=== PATIENT | female | born 1965 | race Caucasian/White ===

== ENCOUNTER 2021-05-30 10:45 | Outpatient (CLI) | payer OTHER, SELFPAY ==
[2021-05-30 11:47] LABS: SARS-CoV-2 RNA PCR Negative (Negative)
== END 2021-05-30 10:46 | disposition home or self-care (01) ==
LOC: CHSLAB 10:48
PROVIDERS: PCP Internal Medicine; Visit Provider Internal Medicine
DX: Z20.822 Contact with and (suspected) exposure to COVID-19 (principal)
CPT/HCPCS: C9803; U0003; U0005

== ENCOUNTER 2021-05-31 11:48 | Outpatient (CLI) | payer OTHER, SELFPAY ==
--- NOTE | ~2021-05-31 | XR_ITS ---
EXAMINATION: XR chest 2V 05/31/2021 12:26 INDICATION: Fever and cough. Covid. PROCEDURE: 2 view chest COMPARISON: No prior studies for comparison. FINDINGS: The lungs are clear. The cardiomediastinal silhouette is within normal limits. There are no pleural effusions. There is no pneumothorax suspected. There are cholecystectomy clips. IMPRESSION: 1: NO ACUTE CARDIOPULMONARY DISEASE. Reviewed, dictated and finalized at location A.
[2021-05-31 12:37] LABS: Basophils Absolute Auto 0.09 K/mm3 (0.00-0.10); Basophils Percent Auto 1.1 % (0.0-1.0); Eosinophils Absolute Auto 0.33 K/mm3 (0.02-0.50); Hematocrit 47.1 % (35.0-49.0); Immature Granulocyte Absolute 0.03 K/mm3 (0.00-0.00); Immature Granulocyte Percent A 0.4 % (0.0-0.0); Lymphocytes Absolute Auto 3.23 K/mm3 (1.10-4.50); Lymphocytes Percent Auto 39.2 % (18.0-42.0); Mean Corpuscular Hemoglobin 29.9 pg (27.0-31.0); Monocytes Absolute Auto 0.56 K/mm3 (0.10-0.90); Monocytes Percent Auto 6.8 % (2.0-11.0); Neutrophils Percent Auto 48.5 % (50.0-70.0); Platelet Count Result 250 K/mm3 (150-420); Red Blood Count 5.35 M/mm3 (4.20-5.40); Red Cell Distribution Width 13.5 % (11.6-14.4); White Blood Count 8.2 K/mm3 (4.8-10.8)
[2021-05-31 12:55] LABS: Alanine Aminotransferase 25 U/L (14-59); Albumin Level 3.4 g/dL (3.4-5.0); Alkaline Phosphatase 167 U/L (46-116); Anion Gap 10 mmol/L (8-16); Aspartate Amino Transferase 21 U/L (15-37); Bilirubin,Total 0.3 mg/dL (0.00-1.00); Blood Urea Nitrogen 8 mg/dL (7-18); CRP 0.5 mg/dL (0.0-0.9); Calcium 8.7 mg/dL (8.5-10.1); Carbon Dioxide 27 mmol/L (21-32); Chloride 103 mmol/L (98-108); Estimated Glomerular Filt Rate > 60; Glucose 124 mg/dL (70-99); Osmolality Calculated 289 mOsm/kg (285-295); Potassium 4.1 mmol/L (3.5-5.1); Sodium 140 mmol/L (136-145); Total Protein 7.2 g/dL (6.4-8.2)
[2021-05-31 13:25] LABS: SARS-CoV-2 RNA PCR Negative (Negative)
== END 2021-05-31 11:49 | disposition home or self-care (01) ==
PROVIDERS: PCP Internal Medicine; Visit Provider Internal Medicine
DX: R50.9 Fever, unspecified (principal); R05 Cough; R19.7 Diarrhea, unspecified; Z20.822 Contact with and (suspected) exposure to COVID-19
CPT/HCPCS: 36415; 71046; 80053; 85025; 86140; C9803; U0003; U0005

== ENCOUNTER 2022-02-13 13:07 | Outpatient (RCR) | payer OTHER, SELFPAY ==
--- NOTE | 2022-02-13 14:02 | PTOPEVAL ---
Thank you for referring Blanca Grijalva to [facility].? The patient is scheduled to be seen for therapy? ____x/week for ___ weeks. Please review, sign, date and return this plan of care ZARA. I agree with and certify that the following plan of care is medically necessary. Referring Physician Date Admitting Provider: Attending Provider: Carter Wolf MD Referring Provider: *PT Outpatient Evaluation Start: 02/13/22 13:15 Freq: Status: Active Protocol: Document 02/13/22 13:15 Summer (Rec: 02/13/22 14:02 KISHA [email or web address]) Therapy Assessment Status Assessment Status Assessment Status Evaluation Evaluation Information Problem Diagnosis lower back pain Onset 02/05/22 Additional Evaluation Detail oswestry = 60% functional deficits Subjective Information patient reports she has had Query Text:As Reported By Patient/ increased back pain for about Family 1 month. she reports she had a fusion of lower lumbar levels of the spine back in 1983. she reports she now is having trouble walking, sleeping, standing. she reports sitting is tolerable, but she does have to get up and move from time to time. she reports she has no NTB down the legs. Prior Level of Function Comments Additional Prior Level of Function patient has been getting Comments progressively worse for about 1 month. she reports no recent change in activities. she reports she would like to get back to walk around the block at home, cleaning house, and other chores without pain. Pain Assessment Timing of Pain Assessment Timing of Pain Assessment Assessment Pain Scale Pain Scale Used Numeric (1 - 10) Self Report Pain Assessment Lower Back Reported Pain Level 9 Pain Description Aching,Heavy,Sharp,Stabbing Pain Frequency Acute,Chronic Greatest Pain Intensity 10 Pain Score Pain Score 9: Self Report Interventions Used Interventions Used By Clinicians Medication,Rest Other Alleviating Interventions tramadol, cyclobenzepram Cervical and Lumbar ROM Lumbar ROM Lumbar Flexion Active Ankle Query Text:Hands to: Lumbar Extension (0-40) 0 Query Text:Active in Degrees Lumbar Lateral Flexion Right (0-40) 15 Query Text:Active in Degrees
--- NOTE | 2022-06-18 07:31 | PCPTNOTE ---
mrs. borges has not been to therapy since back in February. as of this date, she will be dc'd from skilled PT services due to lack of return to complete POC. KISHA
== END 2022-02-27 23:59 | disposition home or self-care (01) ==
LOC: CHSPT 13:07
PROVIDERS: PCP Internal Medicine; Visit Provider Internal Medicine
DX: M54.50 Low back pain, unspecified (principal)
CPT/HCPCS: 97014; 97110; 97161; G0283

== ENCOUNTER 2022-03-07 11:29 | Outpatient (CLI) | payer OTHER, SELFPAY ==
--- NOTE | 2022-03-07 11:45 | ECG_ITS ---
Measurements Intervals [place] Rate: 88 P: 75 VT: 161 QRS: 74 QRSD: 77 T: 27 QT: 350 QTc: 425 Interpretive Statements SINUS RHYTHM NONSPECIFIC T-WAVE ABNORMALITY NO PREVIOUS ECG AVAILABLE FOR COMPARISON Electronically Signed On 03-08-2022 15:52:11 CDT by Acosta Mobley M.D.
[2022-03-07 11:48] LABS: Basophils Absolute Auto 0.09 K/mm3 (0.00-0.10); Basophils Percent Auto 1.3 % (0.0-1.0); Eosinophils Absolute Auto 0.33 K/mm3 (0.02-0.50); Eosinophils Percent Auto 4.6 % (1.0-6.0); Hematocrit 45.7 % (35.0-49.0); Immature Granulocyte Absolute 0.04 K/mm3 (0.00-0.00); Immature Granulocyte Percent A 0.6 % (0.0-0.0); Lymphocytes Absolute Auto 2.73 K/mm3 (1.10-4.50); Lymphocytes Percent Auto 38.1 % (18.0-42.0); Mean Corpuscular HGB Conc 32.8 g/dL (32.0-36.0); Mean Corpuscular Hemoglobin 29.5 pg (27.0-31.0); Mean Platelet Volume 9.1 fl (9.2-11.8); Monocytes Percent Auto 8.4 % (2.0-11.0); Neutrophils Absolute Auto 3.4 K/mm3 (1.7-7.2); Platelet Count Result 239 K/mm3 (150-420); Red Blood Count 5.08 M/mm3 (4.20-5.40); Red Cell Distribution Width 13.6 % (11.6-14.4); White Blood Count 7.2 K/mm3 (4.8-10.8)
[2022-03-07 12:05] LABS: Alanine Aminotransferase 26 U/L (14-59); Albumin Level 3.4 g/dL (3.4-5.0); Alkaline Phosphatase 179 U/L (46-116); Anion Gap 5 mmol/L (8-16); Aspartate Amino Transferase 18 U/L (15-37); Bilirubin,Total 0.2 mg/dL (0.00-1.00); Blood Urea Nitrogen 17 mg/dL (7-18); Calcium 8.6 mg/dL (8.5-10.1); Carbon Dioxide 27 mmol/L (21-32); Chloride 105 mmol/L (98-108); Estimated Glomerular Filt Rate > 60; Glucose 121 mg/dL (70-99); Osmolality Calculated 286 mOsm/kg (285-295); Potassium 4.5 mmol/L (3.5-5.1); Sodium 137 mmol/L (136-145); Total Protein 7.5 g/dL (6.4-8.2)
== END 2022-03-07 11:30 | disposition home or self-care (01) ==
LOC: CHSCARD 11:33
PROVIDERS: PCP Internal Medicine; Visit Provider Internal Medicine
DX: Z01.818 Encounter for other preprocedural examination (principal)
CPT/HCPCS: 36415; 80053; 85025; 93005

== ENCOUNTER 2022-04-24 12:39 | Outpatient (CLI) | payer OTHER, SELFPAY ==
[2022-04-24 14:12] LABS: SARS-CoV-2 Ag Negative (Negative)
[2022-04-24 14:50] LABS: SARS-CoV-2 RNA PCR Negative (Negative)
== END 2022-04-24 12:40 | disposition home or self-care (01) ==
LOC: CHSLAB 12:43
PROVIDERS: PCP Internal Medicine; Visit Provider Internal Medicine
DX: Z20.822 Contact with and (suspected) exposure to COVID-19 (principal)
CPT/HCPCS: 87426; C9803; U0003; U0005

== ENCOUNTER 2022-04-29 10:56 | Outpatient (CLI) | payer OTHER, SELFPAY ==
[2022-04-29 11:45] LABS: SARS-CoV-2 Ag Negative (Negative)
[2022-04-29 12:29] LABS: SARS-CoV-2 RNA PCR Negative (Negative)
== END 2022-04-29 10:57 | disposition home or self-care (01) ==
LOC: CHSLAB 10:58
PROVIDERS: PCP Internal Medicine; Visit Provider Internal Medicine
DX: Z20.822 Contact with and (suspected) exposure to COVID-19 (principal)
CPT/HCPCS: 87426; C9803; U0003; U0005

== ENCOUNTER 2022-10-03 09:42 | Outpatient (CLI) | payer OTHER, SELFPAY ==
--- NOTE | ~2022-10-03 | CT_ITS ---
EXAMINATION:CT lung screening DATE: 10/03/2022 10:54 INDICATION: Persistent history of nicotine dependence. Current smoker with 30 pack year history. TECHNIQUE: Computed tomography (CT) of the chest was performed without intravenous contrast. Automate d exposure control and iterative reconstruction technique were employed. The dose-length product (DLP ) was 413.55 mGy-cm. COMPARISON: None. FINDINGS: There is mild emphysema. There is mild atelectasis bilaterally. No pleural effusion. The he art size is normal. There are coronary artery calcifications. No pericardial effusion. There is diffu se hepatic steatosis. There are changes of cholecystectomy. There is severe thoracic spondylosis. IMPRESSION: 1. Lung-RADS category 1: Negative. Continue annual screening with noncontrast low-dose chest CT in 12 months. Reviewed, dictated and finalized at location A. VISION ANNOUNCER IMPRESSION: 1. Lung-RADS category 1: Negative. Continue annual screening with noncontrast l ow-dose chest CT in 12 months.
--- NOTE | ~2022-10-03 | MR_ITS ---
MRI of the lumbar spine Clinical History: Back pain Technique: Axial T2-weighted images, and sagittal T1-weighted, T2-weighted, and STIR images were acqu ired. Following intravenous administration of 10 cc MultiHance gadolinium, T1-weighted fat-sat imagin g was performed in the axial and sagittal planes. Findings: Posterior orthopedic hardware with susceptibility artifact is again present at the L4-L5 an d L5-S1 levels. Osseous alignment is stable from prior exam. No fracture or subluxation. No suspiciou s bone marrow signal abnormality evident. At L1-L2, there is mild disc bulge, especially at the left side, with minimal facet arthropathy. No f rank spinal canal stenosis. Probable minimal right neural foraminal narrowing. Left neural foramen pr eserved. At L2-L3, there is disc bulge and facet arthropathy, which contribute to severe spinal canal stenosis /thecal sac compression. There is moderate bilateral neural foraminal narrowing. At L3-L4, there is minimal disc bulge with facet arthropathy. Susceptibility artifact limits evaluati on the spinal canal. Probable minimal bilateral neural foraminal narrowing. At L4-L5, there is no definite disc bulge or herniation. Susceptibility artifact limits evaluation sp inal canal, but no definite canal stenosis is evident. Probable mild right neural foraminal narrowing . At L5-S1, no definite disc bulge or herniation seen. Susceptibility artifact limits evaluation of the spinal canal. Bilateral neural foramina are preserved. No abnormal postcontrast enhancement identified. Paravertebral soft tissues are unremarkable. Impression: Posterior hardware from L4 through S1, with associated susceptibility artifact. Multifactorial severe central canal stenosis/thecal sac compression at L2-L3 with moderate bilateral neural foraminal narrowing. Limited evaluation of spinal canal at the operative levels due to susceptibility artifact. Reviewed, dictated and finalized at [facility]. NS CUTTER Impression: Posterior hardware from L4 through S1, with associated susceptibility artifact. Multifactorial severe central canal stenosis/thecal sac compression at L2-L3 wi th moderate bilateral neural foraminal narrowing. Limited evaluation of spinal canal at the operative levels due to susceptibilit y artifact.
== END 2022-10-03 09:43 | disposition home or self-care (01) ==
LOC: CHSIMG 09:43
PROVIDERS: PCP Internal Medicine; Visit Provider Internal Medicine
DX: M54.50 Low back pain, unspecified (principal); Z12.2 Encounter for screening for malignant neoplasm of respiratory organs; Z87.891 Personal history of nicotine dependence; M48.061 Spinal stenosis, lumbar region without neurogenic claudication; G95.29 Other cord compression
CPT/HCPCS: 71271; 72158; A9577

== ENCOUNTER 2023-02-06 13:12 | Outpatient (CLI) | payer OTHER, SELFPAY ==
--- NOTE | ~2023-02-06 | CT_ITS ---
EXAMINATION: CT pelvis wo con DATE: 02/06/2023 13:46 INDICATION: Sacrococcygeal disorder. Back pain. TECHNIQUE: Computed tomography (CT) of the pelvis was performed without intravenous contrast. Automat ed exposure control and iterative reconstruction technique were employed. The dose-length product was 830.66 mGy-cm. COMPARISON: None FINDINGS: There are no dilated loops of bowel. There are no pathologically enlarged lymph nodes. Ther e is no free intraperitoneal fluid. Bone alignment is normal. No fracture. There are changes of poste rior fusion procedure at L4-L5. There is severe lumbar spondylosis. There is severe osteoarthritis of the hips. Osteitis pubis is noted. There is severe osteoarthritis of the sacroiliac joints. IMPRESSION: 1. Polyarticular osteoarthritis. Reviewed, dictated and finalized at location E.
--- NOTE | ~2023-02-06 | CT_ITS ---
EXAMINATION: CT lumbar spine wo con DATE: 02/06/2023 13:46 INDICATION: Lumbar spinal stenosis. Back pain. TECHNIQUE: Computed tomography (CT) of the lumbar spine was performed without intravenous contrast. A utomated exposure control and iterative reconstruction technique were employed. The dose-length produ ct was 1213.50 mGy-cm. COMPARISON: Lumbar spine MRI 10/03/2022 FINDINGS: There is severe atrophy of right kidney. Calcifications in right kidney are likely parenchy mal. There is 7 degrees levocurvature of thoracolumbar spine. There is mild chronic anterior wedging of T11 and T12 vertebral bodies. There is moderately decreased disc height at T11-T12, T12-L1, and L1 -L2, severely decreased disc height at L2-L3, mildly decreased disc height at L3-L4, severely decreas ed disc height at L4-L5, mildly decreased disc height at L5-S1. There may be nonbridging interbody aris ne graft at L4-L5. There is fixation of the posterior elements at L4-L5. There is osseous central can al stenosis in lumbar spine. The following disc levels are specifically discussed: T11-T12: The disc is bulging. There is mild bilateral facet joint osteoarthritis. There is no neural foraminal stenosis. There is mild central canal stenosis. T12-L1: The disc is bulging. There is moderate bilateral facet joint osteoarthritis. There is mild ri ght neural foraminal stenosis. There is mild central canal stenosis. L1-L2: The disc is bulging. There is moderate right and mild left facet joint osteoarthritis. There i s mild bilateral neural foraminal stenosis. There is mild central canal stenosis. L2-L3: The disc is bulging. There is moderate bilateral facet joint osteoarthritis. There is moderate bilateral neural foraminal stenosis. There is moderate central canal stenosis. L3-L4: The disc is bulging. There is severe right and moderate left facet joint osteoarthritis. There is mild bilateral neural foraminal stenosis. There is moderate central canal stenosis. L4-L5: The disc is bulging. There is severe bilateral facet joint osteoarthritis. There is mild right and moderate left neural foraminal stenosis. There is mild central canal stenosis with posterior dec ompression. L5-S1: The disc is bulging. There is severe bilateral facet joint osteoarthritis. There is mild bilat eral neural foraminal stenosis. There is mild central canal stenosis. IMPRESSION: 1. Severe lumbar spondylosis. 2. Posterior fusion procedure at L4-L5. Reviewed, dictated and finalized at location E.
== END 2023-02-06 13:13 | disposition home or self-care (01) ==
LOC: CHSIMG 13:13
PROVIDERS: PCP Internal Medicine; Visit Provider Neurological Surgery
DX: M53.3 Sacrococcygeal disorders, not elsewhere classified (principal); M48.00 Spinal stenosis, site unspecified; M85.88 Other specified disorders of bone density and structure, other site; M43.06 Spondylolysis, lumbar region; Z98.1 Arthrodesis status
CPT/HCPCS: 72131; 72192

== ENCOUNTER 2024-02-20 13:04 | Outpatient (CLI) | payer OTHER, SELFPAY ==
--- NOTE | ~2024-02-20 | MR_ITS ---
MRI of the lumbar spine Clinical History: Spinal stenosis Technique: Axial T2-weighted images, and sagittal T1-weighted, T2-weighted, and T2 fat-sat images wer e acquired. COMPARISON: 10/03/2022 Findings: There is no fracture or subluxation of the lumbar spine. There is posterior fusion hardware extending from L4 through S1, with associated susceptibility artifact posteriorly. No suspicious bon e marrow signal abnormality evident. At L1-L2, there is moderate to advanced degenerative distended. There is mild diffuse disc bulge with probable superimposed small central disc protrusion. There is moderate facet arthropathy. There is m inimal central canal stenosis. There is mild bilateral neural foraminal narrowing. At L2-L3, there is moderate to advanced degenerative disc narrowing. There is diffuse disc bulge with superimposed small left paracentral to left foraminal disc protrusion. Advanced facet arthropathy al so contributes to severe spinal canal stenosis/thecal sac compression at this level. There is severe bilateral neural foraminal narrowing. At L3-L4, there is mild disc bulge with severe facet arthropathy, and suspected severe spinal canal s tenosis/thecal sac compression. There is moderate bilateral neural foraminal narrowing, left worse th an right. At L4-L5, there is moderate degenerative disc narrowing with posterior decompression. No definite spi nal canal stenosis. Neural foramina are probably preserved. At L5-S1, there is minimal disc bulge with advanced facet arthropathy. No definite canal stenosis. Pr obable mild to moderate left neural foraminal narrowing. No definite right neural foraminal narrowing . Paravertebral soft tissues are otherwise unremarkable. Impression: Probable advanced degenerative spondylosis at L2-L3 and L3-L4, as detailed above. Probable moderate degenerative spondylosis at L1-L2, as detailed above. Postoperative change, as above. Reviewed, dictated and finalized at location M. Impression: Probable advanced degenerative spondylosis at L2-L3 and L3-L4, as detailed abov e. Probable moderate degenerative spondylosis at L1-L2, as detailed above. Postoperative change, as above.
== END 2024-02-20 13:05 ==
LOC: MICIMG 13:05
PROVIDERS: PCP Neurological Surgery; Visit Provider Neurological Surgery
DX: M48.062 Spinal stenosis, lumbar region with neurogenic claudication (principal); Z98.1 Arthrodesis status
CPT/HCPCS: 72148

== ENCOUNTER 2024-04-09 07:34 | Outpatient (CLI) | payer OTHER, SELFPAY ==
--- NOTE | ~2024-04-09 | XR_ITS ---
XR hip BI wo pelvis Ordering provider: Liban Pichardo MD History: . BILAT HIP PAIN ESPECIALLY ON THE LEFT . Comparison: February 07, 2016 FINDINGS: BONES: No acute fracture or dislocation. HIP JOINT SPACES: Severe osteoarthritic changes in the left hip. Moderate osteoarthritic changes of t he right hip. SACROILIAC JOINT SPACES/LUMBAR SPINE: The sacroiliac joint spaces are normal. Mild degenerative sanchez es of the visualized lower lumbar spine. PUBIC SYMPHYSIS: Pubic symphysitis. SOFT TISSUES: Normal. Postoperative changes in the lower lumbar area IMPRESSION: No acute osseous abnormality of the bilateral hips and pelvis. Bilateral hip osteoarthritic changes. Reviewed, dictated and finalized at location A.
== END 2024-04-09 07:35 | disposition home or self-care (01) ==
PROVIDERS: PCP Internal Medicine; Visit Provider Orthopaedic Surgery
DX: M16.0 Bilateral primary osteoarthritis of hip (principal)
CPT/HCPCS: 73521

== ENCOUNTER 2024-05-01 12:06 | Outpatient (CLI) | payer OTHER, SELFPAY ==
--- NOTE | ~2024-05-01 | XR_ITS ---
XR lumbar spine 2-3V DATE: 05/01/2024 12:44 INDICATION: Back pain. Surgery 3 years ago TECHNIQUE: AP, lateral, coned lateral lumbosacral views COMPARISON: 02/20/2024 MR lumbar spine FINDINGS: Status post posterior fusion at L4-5. There is degenerative spurring of the included lower thoracic spine. There is degenerative disc disease throughout the lumbar and lumbosacral spine, severe at L1-2, L2-3, moderate at L3-4, severe at L4-5, moderate at L5-S1. No fracture or bone destruction is evident. The sacroiliac joints are intact. Surgical clips overlie the right upper and midabdomen. IMPRESSION: Status post posterior surgical fusion at L4-5 Severe lumbar spondylosis Reviewed, dictated and finalized at location J.
== END 2024-05-01 12:07 | disposition home or self-care (01) ==
PROVIDERS: PCP Internal Medicine; Visit Provider Neurological Surgery
DX: M48.062 Spinal stenosis, lumbar region with neurogenic claudication (principal); M43.06 Spondylolysis, lumbar region; Z98.1 Arthrodesis status
CPT/HCPCS: 72100

== ENCOUNTER 2024-06-14 10:20 | Outpatient (CLI) | payer OTHER, SELFPAY ==
[2024-06-14 11:04] LABS: INR 0.9; Prothrombin Time 12.7 Seconds (11.1-14.7)
== END 2024-06-14 10:21 | disposition home or self-care (01) ==
PROVIDERS: PCP Internal Medicine; Visit Provider Neurological Surgery
DX: Z01.812 Encounter for preprocedural laboratory examination (principal); M48.062 Spinal stenosis, lumbar region with neurogenic claudication
CPT/HCPCS: 36415; 85610; 85730; 86850; 86900; 86901

== ENCOUNTER 2024-06-16 18:36 | Observation (INO) | payer OTHER, SELFPAY ==
[2024-06-03 13:32] VITALS: BMI 47.3
--- NOTE | 2024-06-03 13:52 | PC.NURSE ---
Report to the Outpatient Waiting Room, entrance under the green pavilion located off [facility], at time __0600am on date 06/15/24 . Planned Procedure Time: __0730am .? Time changes happen often and if your time is changed the preop area will call you the afternoon before. - You and your visitor will be asked to self-screen and do not enter if you have any COVID symptoms. Please call surgeon if you need to reschedule. - A mask is optional within the hospital at this time. Patients may have clear liquids (water, carbonated beverages, clear teas, apple juice) until 3 hours prior to surgery with a maximum of 20 ounces. - No food from midnight until time of surgery and no smoking. Take only the following medications with a SIP of water on the morning of surgery: _GABAPENTIN, FLEXERIL IF NEEDED, DULOXETINE DO NOT STOP ANY OF YOUR OTHER PRESCRIPTION MEDICATIONS PRIOR TO SURGERY EXCEPT THE FOLLOWING Medications to discontinue per physician ____HOLD GUMMIES AM OF SURGERY Date to take last dose Please no make-up, nail amharic, hairspray, perfume, deodorant, or body powder the day of surgery.? No jewelry (including any body piercings) or valuables the day of surgery, leave them at home.? Please take a shower or bath the night before, or the morning of, surgery with an antibacterial soap.? Wear comfortable, loose fitting clothing.? - Jewelry must be removed prior to entering the operating room.? Rings and piercings that are not removed may be cut off. - The hospital will not accept responsibility for valuables.? - Please leave all valuables, including medications, at home the day of surgery. If you are going home after surgery, a licensed belly dump driver must drive you home.? - NO public transportation without another adult if you receive anesthesia. - We recommend that an adult stay with you for 24 hours following discharge. - We also recommend that you do not drive, make important decision, drink alcoholic beverages, or take any drugs that were not prescribed by your health care provider for at least 24 hours after your discharge time. Follow any additional instructions given to you from your surgeon. Telephone instructions given to __MARY__and asked if any additional questions and then verbalized understanding. Patient advised to call surgeon office or pre surgery nurse liaison [phone] if any additional questions.
--- NOTE | 2024-06-14 13:34 | P.PNAN_ITS ---
Anes - Initial Pre Proc Eval Procedure: Operation Date: 06/15/24 07:30 Proposed Procedures p L2-3, L3-4 Posterior Lumbar Interbody Fusion - Jesus Hills MD Date/Time: 06/14/24 13:34 Surgeon: Jesus Hills MD Pre Op Diagnosis: L2-3, L3-4 stenosis Patient Data Age: 59 Gender: F Height: 1.52 m Weight: 110 kg Allergies Allergy/AdvReac Type Severity Reaction Status Date / Time Penicillins Allergy Intermediate Hives Verified 06/15/24 06:48 Home Medications Medication Instructions Recorded Confirmed Type atorvastatin 20 mg tablet 20 mg PO DAILY 01/06/24 06/15/24 History cyclobenzaprine 5 mg tablet 5 mg PO TID PRN PAIN 01/06/24 06/15/24 History duloxetine 30 mg capsule,delayed 30 mg PO QAM 01/06/24 06/15/24 History release gabapentin 100 mg capsule 100 mg PO TID 01/06/24 06/15/24 History pantoprazole 40 mg tablet,delayed 40 mg PO QAM 01/06/24 06/15/24 History release tirzepatide 15 mg/0.5 mL 15 mg subcut WEEKLY 01/06/24 06/15/24 History subcutaneous pen injector (Mounjaro) acetaminophen 500 mg capsule 1,000 mg PO BID PRN Pain 06/03/24 06/03/24 History duloxetine 30 mg capsule,delayed 60 mg PO QPM 06/03/24 06/15/24 History release Patient hx anesthesia problems: none Family hx anesthesia problems: none Results Review: All pre-operative results and documents have been reviewed as part of the pre- operative evaluation. [facility] Past Medical History Medical History (Updated 06/14/24 @ 13:35 by Erick Crowder DO) Diabetes Hyperlipidemia Neuropathy Surgical History Surgical History History of back surgery History of History of carpal tunnel release Family History Family History Other Diabetes mellitus Family history of coronary artery disease Hypertension Social History Social History Years smoked: 30 Smoking status: Former smoker Tobacco type: cigarettes Smoking end date: 09/15/21 Alcohol intake: never Substance use: current Substance use type: marijuana Other substance usage details: EDIBLES Last use: 06/03/24 Do You Feel Safe in your Home?: Yes Lack of Transportation: No Lack of Food: Never True Current Housing: I Have Housing Concerned About Future Housing: No Difficulty Paying Gas/Electric Bills: No Difficulty Paying for Meds: No Currently Unemployed: No Education: High School Diploma/GED Difficulty w/ Childcare or Family Care: No Living arrangements: with family Spiritual care concerns: No Anes - Eval Final PreProcedure Day of Procedure 06/14/24 13:34 Patient weight: morbidly obese Heart: regular rate and rhythm Lungs: clear to auscultation Airway: Mallampati scale class III Neurological: alert and oriented Last oral intake: >/= 8 hours ASA classification: III Emergent: no Anesthetic plan: proceed Anesthesia type and monitoring: general ETT and standard monitoring Results Review: All pre-operative results and documents have been reviewed as part of the pre- operative evaluation. Informed Consent: The patient's anesthetic plan and its attendant risks and benefits were discussed with the patient/family/POA. Questions were solicited and answers provided to the satisfaction of the patient/family/POA.
[2024-06-15] VITALS (14 sets, daily range): BP systolic 128–150; BP diastolic 73–94; PULSE 81–101; RESP 8–20; TEMP 36.2–36.7; O2SAT 92–100
[2024-06-15] MEDS: LACTATED RINGERS 1,000 ML 30 ML IV CONT ×2 (06:25→11:26)
--- NOTE | 2024-06-15 07:44 | PM.IMHP ---
H&P: HPI History of Present Illness Date/Time: 06/15/24 07:44 Chief Complaint: Back and leg pain Narrative: Blanca is here today in follow-up of her back discomfort that is somewhat claudicatory. In 2019 she underwent an injection of her right SI joint which was 90% effective in eliminating the discomfort that she currently has or similar discomfort. She is currently complaining of discomfort that is in the middle of her back in the lumbosacral area. It does seem to go away if she sits down and is worse if she stands and walks. She does not report specific muscle group weakness or dermatomal numbness. She is not having bowel or bladder difficulty. She has not improved since we saw her last. She is here to discuss potential surgical management of her problem. Last time she was here we discussed L2-3 and L3-4 posterior lumbar interbody fusion to deal with the junctional stenosis. She has not had any injections since a few years ago and may be going all the way back to 2019. Review of Systems Review of Systems: Const Details: Const All systems reviewed & are unremarkable except as noted in HPI and below Denies chills, Denies fever(s), Denies frequent falls, Denies weakness, Denies weight gain and Denies weight loss Eyes Denies change in vision, Denies diplopia and Denies loss of vision ENT Denies neck pain and Denies disequilibrium Card Denies chest pain and Denies dyspnea Resp Denies cough and Denies dyspnea GI Denies abdominal pain, Denies change in bowel habits, Denies fecal incontinence and Denies vomiting Denies hematuria, Denies urinary frequency, Denies difficulty voiding, Denies dysuria, Denies urinary incontinence, Denies urinary hesitancy and Denies urinary urgency Musc Reports as per HPI, Reports abnormal gait, Reports back pain, Denies muscle weakness, Denies neck pain, Denies numbness, Denies radiating pain into limb, Reports stiffness and Denies tingling Skin/ Breast Reports system reviewed and no additional complaints, except as documented Neuro Reports as per HPI, Reports abnormal gait, Denies burning sensations, Denies frequent falls, Denies focal weakness, Denies loss of vision, Denies numbness, Denies radicular pain, Denies tingling, Denies disequilibrium and Denies weakness Psych Reports no additional complaints, Denies depression and Denies hopelessness Endo Reports no additional complaints and Denies polyuria Last/ Lymph Reports no additional complaints Aller/ Immun Reports no additional complaints [facility] Past Medical History Medical History (Updated 06/14/24 @ 13:35 by Erick Crowder DO) Diabetes Hyperlipidemia Neuropathy Surgical History Surgical History History of back surgery History of History of carpal tunnel release Family History Family History Other Diabetes mellitus Family history of coronary artery disease Hypertension Social History Social History Years smoked: 30 Smoking status: Former smoker Tobacco type: cigarettes Smoking end date: 09/15/21 Alcohol intake: never Substance use: current Substance use type: marijuana Other substance usage details: EDIBLES Last use: 06/03/24 Do You Feel Safe in your Home?: Yes Lack of Transportation: No Lack of Food: Never True Current Housing: I Have Housing Concerned About Future Housing: No Difficulty Paying Gas/Electric Bills: No Difficulty Paying for Meds: No Currently Unemployed: No Education: High School Diploma/GED Difficulty w/ Childcare or Family Care: No Living arrangements: with family Spiritual care concerns: No Meds Home Medications and Allergies Home Medications Medication Instructions Recorded Confirmed Type atorvastatin 20 mg tablet 20 mg PO DAILY 01/06/24 06/15/24 History cyclobenzaprine 5 mg tablet 5 mg PO TID PRN PAIN 01/06/24 06/15/24 History duloxetine 30 mg capsule,delayed 30 mg PO QAM 01/06/24 06/15/24 History release gabapentin 100 mg capsule 100 mg PO TID 01/06/24 06/15/24 History pantoprazole 40 mg tablet,delayed 40 mg PO QAM 01/06/24 06/15/24 History release tirzepatide 15 mg/0.5 mL 15 mg subcut WEEKLY 01/06/24 06/15/24 History subcutaneous pen injector (Gilbertunvirajro) acetaminophen 500 mg capsule 1,000 mg PO BID PRN Pain 06/03/24 06/03/24 History duloxetine 30 mg capsule,delayed 60 mg PO QPM 06/03/24 06/15/24 History release Allergies Allergy/AdvReac Type Severity Reaction Status Date / Time Penicillins Allergy Intermediate Hives Verified 06/15/24 06:48 Vital Signs Vital Signs - 24 hr 06/15/24 06:03 Temperature 98.0 F Pulse Rate 89 Respiratory Rate 18 Blood Pressure 149/87 H Pulse Oximetry 99 Oxygen Delivery Room Air Exam Narrative: Const General: cooperative, no acute distress, well developed, alert and awake Orientation/Consciousness: oriented to person, oriented to place and oriented to time Constitutional Limitations: no limitations Other: The patient is a normally developed, normal appearing female sitting on the examination table in no acute distress. She is awake, alert, and oriented x3 with good fund of knowledge, recall of events, and fluent speech. HENMT Head: normocephalic and atraumatic Ears: external ears normal Face/Nose/Sinus: Normal external nose present Eyes Eyelids: eyelids normal Pupils: Yes Pupils normal by confrontation EOM: EOMs intact bilaterally Neck General: Yes no meningeal signs, Yes supple and Yes no JVD Resp Effort/Inspection: normal respiratory effort and able to speak in complete sentences Cardio Rate: Yes regular rate GI Inspection: No abdominal distension Musc Other: Examination of the back reveals a well-healed scar and that she is tender over the left SI joint. Range of motion of the back is limited by discomfort, habitus, and deconditioning. Straight leg raise is negative bilaterally. Johnny?s test is negative bilaterally. Skin General: normal color Neuro General: Yes oriented to person, Yes oriented to place, Yes oriented to time, Yes normal cognition and Yes no meningeal signs Cranial Nerves: Yes CN's II-XII intact bilaterally Other: Motor: Strength is normal, 5/5, throughout all muscle groups of the bilateral lower extremities to direct confrontation. Sensory: Sensation is intact to light touch throughout the lower extremities bilaterally. Reflexes: Deep tendon reflexes are difficult to elicit at the knees and ankles bilaterally secondary to habitus. There is no ankle clonus. Gait: Gait, station, and transfers were independent and steady for short periods of time and over short distances with the use of an assistive device but she favored the left side and hunched over. Psych Appearance: grossly normal Mental status: Yes mental status grossly normal Mood: congruent mood Affect: Yes normal affect Speech/Movement: Normal speech and movement present Attitude: Yes cooperative Thought Content: Normal thought content present Assessment and Plan Assessment and plan (1) Lumbar stenosis with neurogenic claudication: Code(s): M48.062 - Spinal stenosis, lumbar region with neurogenic claudication Status: Acute (2) Status post lumbar spinal fusion: Code(s): Z98.1 - Arthrodesis status Status: Acute Assessment and Plan: Blanca is a 59-year-old female with back discomfort that could be related to the junctional stenosis or the sacroiliitis. We have previously discussed an L2-3 and L3-4 posterior lumbar interbody fusion and we will continue to plan that operation and schedule it. In the meantime, however, we will have her obtain diagnostic injections of the sacroiliac joints. 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 We will refer her for evaluation. We again discussed the operation, its risks, potential benefits, the operative and postoperative course in detail and answered all her questions personally. We discussed risks including but not limited to permanent neurologic deficit secondary to nerve root injury, need for reoperation secondary to infection, bleeding, CSF leak, adjacent level disease, recurrent or residual pathology or instability, 5th malposition migration of the hardware or nonunion, failure of the procedure to relieve her pain or symptoms, persistent pain, medical complications related anesthesia or surgery, etc.. It could be that she will need more than 1 operation. The status of her hips and needing surgery is unknown at this point. Whether the lumbar spine of the sacroiliac joints are addressed the other may need to be addressed in the future. We will try to gather as much information as possible prior to any surgical intervention but I currently favor fixing the back 1st. Her obesity is a problem and may make recovery difficult and cloud the clinical picture going forward.
--- NOTE | 2024-06-15 07:46 | WPDHPUPDATE1 ---
History and Physical Update Update Date/Time: 06/15/24 07:46 History and Physical has been reviewed, including an updated exam of the patient. There are NO changes in the patient's condition. Risks, benefits, and alternatives have been discussed and questions answered. Patient agrees to proceed with procedure.
[2024-06-15] MEDS: ceFAZolin 2 GM/D5W 50 ML 2 GM/50 ML BAG IVPB (07:50)
[2024-06-15] MEDS: LIDO 1%/EPINEPHRINE 1:100,000 20 ML VIAL INFILTRATE (08:34)
[2024-06-15 09:04] LABS: Glucose Point of Care 89 mg/dl (65-105)
[2024-06-15] MEDS: VANCOMYCIN HCL 1,000 MG VIAL 1000 MG TOPICAL (10:56)
--- NOTE | 2024-06-15 11:32 | P.OP_ITS ---
Procedure Note - Detailed Date of Procedure 06/15/24 Pre-op Diagnosis L2-3, L3-4 stenosis Post-op Diagnosis Same Procedure Performed L2-3 and L3-4 complete laminectomy and bilateral facetectomy, L3-4 interbody arthrodesis utilizing titanium interbody device and local autograft, L2-3 and L3-4 posterolateral inner transverse fusion, L2-3 and L3-4 pedicle screw instrumentation Surgeon Jesus Hills MD Anesthesia General Description of Procedure patient was brought to the operating room in the supine position, was sedated, intubated placed under general anesthesia in routine fashion. She was then turned into the prone position on open Virgil table. Positioning was difficult secondary to her habitus. Area of operation on her back was examined, marked for incision, prepped and draped in routine sterile fashion. Incision was marked over the L2 through 5 spinous processes in the midline. This area was injected with 0.5% lidocaine with [id number] epinephrine. Intravenous antibiotics given prior to incision. Incision was made with a 10 blade scalpel down to the subcutaneous tissues. Bovie cautery was used to find the lumbodorsal fascia. Self-retaining retractors were placed. A subperiosteal dissection of the muscle soft tissue away from spinous process lamina at L2-4 was performed with a subperiosteal elevator and Bovie cautery. A verifying x-rays obtained to verify the level of operation. The L3 and L4 spinous processes were removed with a Leslie rongeur. Kerrison punches, curved curettes and a Leksell rongeur were used to remove lamina in the midline and to the soft contents of the canal were encountered. Midas-Jean drill was used to resect the pars bilaterally at L3 and L4. The inferior articular process and facet of L3 and L4 were then removed. These were stripped free of soft tissue and morselized for later use as interbody autograft along with the spinous processes. Kerrison punches and curved curettes were used to define a plane with the dura and removed bone ligament flush with the pedicle. This part of the operation was also difficult given her habitus and difficulty with visualization a deep wound. There was an inadvertent durotomy on the left at the L2-3 level. This was later closed with DuraSeal as it had stopped leaking. With thecal sac re tracted and protected the disc space was entered bilaterally using an 11 blade scalpel. Scrapers a very sizes, curettes a Veress configurations, pituitary rongeur and a rasp were used to remove as much cartilaginous endplate and disc material as possible down to bleeding cortical flat surfaces on the opposing bones. This was done at L3-4. The disc space was sized and a 12 mm interbody device was chosen and filled with local autograft bone. The disc space was likewise filled with local autograft bone medially and anteriorly. Interbody device was then placed 2-3 mm countersink within the disc space from the right side. This was that diagonally placed TLIF graft. The transverse processes were stripped free of soft tissue and decorticate using Midas Jean drill. Magnetos and local autograft were packed against these decorticated surfaces. Pedicle screw instrumentation was performed by observing and palpating the pedicle while a hole was made superior to the process above the pedicle using a Midas Jean drill. Pedicle was then cannulated with pedicle probe, checked for continuity of ball probe, tapped with a 5.5 mm tap and a 6.5 x 50 mm screw was placed in the L1, L2 and L3 pedicles bilaterally. 65 mm rods were placed in the screw heads on either side and secured position using the caps that purpose. A verifying x-rays obtained to verify good position of the instrumentation. The caps were definitively tightened with a torque and anti torque device. The wound was copiously irrigated with bacitracin irrigation all bleeding stopped with bipolar Bovie cautery and Gelfoam thrombin powder. As mentioned, DuraSeal was placed against the area of leaking on the left side at L2-3. the wound was then closed in layered fashion with 2-0 Vicryl interrupted sutures in the lumbodorsal fascia and Patricia's layer. 3-0 Vicryl buried interrupted sutures were placed in the dermis and the skin was closed with a running 4-0 Monocryl subcuticular stitch and dressed with Dermabond. Patient was allowed to wake up in the operating room and was taken to the recovery room in stable condition. All counts were reported correct in the case. Blood loss was 300 cc. CPT codes: 97534, 40288, 07609, 06118, 82618, 97946, 07609 Implants titanium interbody device and pedicle screw instrumentation Estimated Blood Loss 300 Drains No Complications Other complications ( inadvertent durotomy closed primarily. No leaking noted at the end of the case.) Condition Stable Disposition PACU [facility] Billing Surgery - Charge Forward: Surgery Billing
[2024-06-15 11:47] LABS: Glucose Point of Care 114 mg/dl (65-105)
[2024-06-15] MEDS: fentaNYL CITRATE INJ (*CRX) 100 MCG/2 ML VIAL 25 MCG IV PUSH ×8 (11:48→12:45)
--- NOTE | 2024-06-15 13:26 | ADMGEN ---
This patient, Blanca Grijalva, was admitted to 2 Medical Room 259-01. Patient/family oriented to hospital policies and general routines including ID bracelet, bed and alarms, visiting hours, pain management, procedures, bathroom and other care routines, personal items, smoking policy, room service/diet, and visiting hours. Information on how to activate the Rapid Response Team has been discussed. Patient/Family are encouraged to report perceived risks to care and to ask questions if they do not understand what they are told or what they should do.
[2024-06-15] MEDS: KCL 20 MEQ/D5/0.45% SOD CHL 1,000 ML 100 ML IV CONT (13:54)
[2024-06-15] MEDS: HYDROmorphone HCL INJ (*CRX) 1 MG/ML SYR 0.5 MG IV PUSH ×2 (13:55→17:31)
[2024-06-15] MEDS: GABAPENTIN 100 MG CAPSULE PO ×2 (13:55→17:30)
[2024-06-15] MEDS: ceFAZolin 1 GM/NS 50 ML 1 GM/50 ML BAG IVPB (15:24)
[2024-06-15] MEDS: CYCLOBENZAPRINE HCL 10 MG TABLET PO (15:24)
[2024-06-15] MEDS: HYDROcodone/acetaminophen (*CRX) 10-325 MG TABLET 1 TAB PO ×2 (15:24→20:21)
[2024-06-15] MEDS: DULoxetine HCL 30 MG CAPSULE.DR 60 MG PO (17:30)
[2024-06-15] MEDS: DOCUSATE SODIUM 100 MG CAPSULE PO (20:21)
--- NOTE | ~2024-06-16 | XR_ITS ---
EXAMINATION: XR fluoroscopy no charge DATE: 06/15/2024 8:30 CDT INDICATION: L2-3, L3-4 POSTERIOR LUMBAR INTERBODY FUSION . TECHNIQUE: 4 fluoroscopic images of the cervical spine were obtained during L2-3 and L3-4 posterior l umbar interbody fusion, performed by Jesus Hills MD. I was not present during the procedure. F luoroscopy exposure time was 8.9 seconds. Air Kerma 8.9112 mGy. DAP 1.7666 mGym2. COMPARISON: None FINDINGS/IMPRESSION: Fluoroscopic documentation of L2-3 and L3-4 posterior lumbar interbody fusion. Please refer to the op erative note for complete procedural details . Reviewed, dictated and finalized at location K.
[2024-06-16] MEDS: ceFAZolin 1 GM/NS 50 ML 1 GM/50 ML BAG IVPB ×4 (00:30→23:58)
[2024-06-16] MEDS: KCL 20 MEQ/D5/0.45% SOD CHL 1,000 ML 100 ML IV CONT ×3 (00:48→22:12)
[2024-06-16] MEDS: HYDROcodone/acetaminophen (*CRX) 10-325 MG TABLET 1 TAB PO ×4 (02:04→17:01)
[2024-06-16 03:32] VITALS: BP 147/87; PULSE 94; RESP 16; TEMP 36.6; O2SAT 96
[2024-06-16 08:00] VITALS: BP 138/78; PULSE 95; RESP 16; TEMP 36.5; O2SAT 96
[2024-06-16] MEDS: ATORVASTATIN 20 MG TABLET PO (08:07)
[2024-06-16] MEDS: DOCUSATE SODIUM 100 MG CAPSULE PO ×2 (08:07→20:26)
[2024-06-16] MEDS: PANTOPRAZOLE 40 MG TABLET PO (08:07)
[2024-06-16] MEDS: GABAPENTIN 100 MG CAPSULE PO ×3 (08:07→17:02)
[2024-06-16] MEDS: CYCLOBENZAPRINE HCL 10 MG TABLET PO ×2 (08:07→17:01)
[2024-06-16] MEDS: DULoxetine HCL 30 MG CAPSULE.DR PO (08:08)
[2024-06-16 12:00] VITALS: BP 134/82; PULSE 88; RESP 16; TEMP 36.4; O2SAT 95
[2024-06-16 15:56] VITALS: BP 109/64; PULSE 98; RESP 16; TEMP 36.4; O2SAT 98
[2024-06-16] MEDS: DULoxetine HCL 30 MG CAPSULE.DR 60 MG PO (17:02)
[2024-06-16 20:32] VITALS: BP 107/61; PULSE 110; RESP 18; TEMP 37; O2SAT 96
[2024-06-16 20:35] VITALS: PULSE 110; RESP 18; O2SAT 96
--- NOTE | 2024-06-16 21:44 | WPDNEUROSGPN ---
Progress Note: A&P Assessment and Plan (1) Lumbar stenosis with neurogenic claudication: Code(s): M48.062 - Spinal stenosis, lumbar region with neurogenic claudication Status: Acute Plan Blanca is doing well status post L2-3 and L3-4 posterior lumbar interbody fusion. She will continue to work with Physical and Occupational therapy. She will start to wean her IV pain medication. Subjective Date/time seen: 06/16/24 21:44 Interval history: Blanca is postop day 1 status post L2-3 and L3-4 posterior lumbar interbody fusion. She is doing well. She has relieved pain in her lower extremities. She the expected postoperative discomfort in her back. She has been working with physical and occupational therapy today. She has not having any new bowel bladder other constitutional problems and has no neurological issues in her lower extremities. Exam Narrative: Strength is normal the bilateral lower extremities. Sensation is intact to light touch in lower extremities. Her wound is clean, dry and intact. Objective Data Vital Signs Vital Signs: Vital Signs - 24 hr 06/15/24 23:32 06/16/24 03:32 06/16/24 08:04 Temperature 97.3 F L 97.9 F Pulse Rate 92 94 Respiratory Rate 16 16 Blood Pressure 132/74 147/87 H Pulse Oximetry 96 96 Oxygen Delivery Room Air 06/16/24 08:00 06/16/24 08:00 06/16/24 12:00 Temperature 97.7 F 97.6 F Pulse Rate 95 88 Respiratory Rate 16 16 Blood Pressure 138/78 134/82 Pulse Oximetry 96 95 Oxygen Delivery Room Air 06/16/24 15:56 06/16/24 20:32 06/16/24 20:35 Temperature 97.6 F 98.6 F Pulse Rate 98 110 H 110 H Respiratory Rate 16 18 18 Blood Pressure 109/64 107/61 Pulse Oximetry 98 96 96 Oxygen Delivery Room Air Intake/Output Intake/Output: Intake & Output 06/13/24 06/14/24 06/15/24 06/16/24 23:59 23:59 23:59 23:59 Intake Total 990 3456 Output Total 1040 1200 Balance -50 2256 Meds/Results Medications: Active Medications Generic Name Dose Route Start Last Admin Trade Name Freq PRN Reason Stop Dose Admin Acetaminophen 1,000 mg 06/15/24 12:56 Acetaminophen 500 Mg Tablet PO BID PRN Pain Hydrocodone Bitart/Acetaminophen 1 tab 06/15/24 12:56 Hydrocodone/Acetaminophen (*Crx) 5-325 Mg Tablet PO Q4H PRN Mild Pain (1-3) Hydrocodone Bitart/Acetaminophen 1 tab 06/15/24 12:56 06/16/24 17:01 Hydrocodone/Acetaminophen (*Crx) 10-325 Mg Tablet PO 1 tab Q4H PRN Administration Moderate Pain (4-6) Al Hydrox/Mg Hydrox/Simethicone 20 ml 06/15/24 12:56 Mag Hydrox/Al Hydrox/Simeth 30 Ml Udc PO Q4H PRN Indigestion/Heartburn Atorvastatin Calcium 20 mg 06/16/24 09:00 06/16/24 08:07 Atorvastatin 20 Mg Tablet PO 20 mg DAILY JACQUI Administration Bisacodyl 10 mg 06/15/24 12:56 Bisacodyl 10 Mg Suppository RECTAL DAILY PRN Constipation Cyclobenzaprine HCl 10 mg 06/15/24 12:56 06/16/24 17:01 Cyclobenzaprine Hcl 10 Mg Tablet PO 10 mg TID PRN Administration Muscle Spasms Docusate Sodium 100 mg 06/15/24 21:00 06/16/24 20:26 Docusate Sodium 100 Mg Capsule PO 100 mg Q12HR JACQUI Administration Duloxetine HCl 30 mg 06/16/24 09:00 06/16/24 08:08 Duloxetine Hcl 30 Mg Capsule. PO 30 mg QAM JACQUI Administration Duloxetine HCl 60 mg 06/15/24 18:00 06/16/24 17:02 Duloxetine Hcl 30 Mg Capsule. PO 60 mg QPM JACQUI Administration Gabapentin 100 mg 06/15/24 13:00 06/16/24 17:02 Gabapentin 100 Mg Capsule PO 100 mg TID JACQUI Administration Hydromorphone HCl 0.5 mg 06/15/24 12:56 06/15/24 17:31 Hydromorphone Hcl Inj (*Crx) 1 Mg/Ml Syr IV PUSH 0.5 mg Q2H PRN Administration Pain Rated 7-10 Cefazolin Sodium 1 gm in 50 mls @ 100 mls/hr 06/15/24 16:00 06/16/24 17:28 Ancef 1 Gm/Ns 50 Ml IVPB Infused Q8H JACQUI Infusion Potassium Chloride/Dextrose/Sod Cl 1,000 mls @ 100 mls/hr 06/15/24 12:56 06/16/24 12:04 Kcl 20 Meq/D5/0.45% Sod Chl IV CONT 100 mls/hr .Q10H JACQUI Administration Non-Formulary Medication 15 mg 06/28/24 09:00 Tirzepatide [Mounjaro] SUB-Q 07/28/24 08:59 Mo@0900 JACQUI Ondansetron HCl 4 mg 06/15/24 12:56 Ondansetron Inj 4 Mg/2 Ml Vial IV PUSH Q8H PRN Nausea And Vomiting Pantoprazole Sodium 40 mg 06/16/24 09:00 06/16/24 08:07 Pantoprazole 40 Mg Tablet PO 40 mg QAM JACQUI Administration Senna/Docusate Sodium 1 tab 06/15/24 12:56 Senna/Docusate Sodium Tablet PO HS PRN Constipation
[2024-06-17] MEDS: HYDROcodone/acetaminophen (*CRX) 10-325 MG TABLET 1 TAB PO ×4 (02:45→17:06)
[2024-06-17 05:21] VITALS: BP 111/63; PULSE 113; RESP 17; TEMP 36.9; O2SAT 97
--- NOTE | 2024-06-17 07:10 | P.CDI_ITS ---
CDI Query Clarification Request Patient with a BMI of 49.6 please provide a diagnosis to accompany this finding: * Overweight * Obesity * Morbid Obesity * Other/Unknown
--- NOTE | 2024-06-17 07:10 | WPDCDIQUERY2 ---
CDI Query Clarification Request Patient with a BMI of 49.6 please provide a diagnosis to accompany this finding: Overweight Obesity Morbid Obesity Other/Unknown
[2024-06-17] MEDS: ceFAZolin 1 GM/NS 50 ML 1 GM/50 ML BAG IVPB ×2 (08:19→16:57)
[2024-06-17] MEDS: ATORVASTATIN 20 MG TABLET PO (08:19)
[2024-06-17] MEDS: DULoxetine HCL 30 MG CAPSULE.DR PO (08:19)
[2024-06-17] MEDS: PANTOPRAZOLE 40 MG TABLET PO (08:19)
[2024-06-17] MEDS: GABAPENTIN 100 MG CAPSULE PO ×3 (08:19→17:07)
[2024-06-17] MEDS: DOCUSATE SODIUM 100 MG CAPSULE PO ×2 (08:19→21:19)
[2024-06-17] MEDS: CYCLOBENZAPRINE HCL 10 MG TABLET PO (08:22)
[2024-06-17] MEDS: KCL 20 MEQ/D5/0.45% SOD CHL 1,000 ML 100 ML IV CONT (10:25)
[2024-06-17 14:13] VITALS: BP 108/53; PULSE 102; RESP 18; TEMP 36.4; O2SAT 100
[2024-06-17] MEDS: DULoxetine HCL 30 MG CAPSULE.DR 60 MG PO (17:07)
--- NOTE | 2024-06-17 17:49 | P.PNNEUSUR_ITS ---
Progress Note: A&P Assessment and Plan (1) Lumbar stenosis with neurogenic claudication: Code(s): M48.062 - Spinal stenosis, lumbar region with neurogenic claudication Status: Acute (2) Status post lumbar spinal fusion: Code(s): Z98.1 - Arthrodesis status Status: Acute Plan -PT/OT -Out of bed to chair and mobilize throughout day -Start DVT ppx tonight -Pain control - will adjust medications to see if this better helps pain and avoids need for dilaudid -Anticipate discharge home tomorrow Subjective Date/time seen: 06/17/24 17:49 Interval history: Complaining of pain in her back which is not being relieved adequately with oral medications. She denies any pain in her legs. She was able to walk today with physical therapy. She would like to go home tomorrow Review of Systems Review of Systems: All systems reviewed & are unremarkable except as noted in HPI and below Exam Narrative: AOx4 Pain limited weakness in left hip flexor (related to known left hip issues), otherwise intact Sensation intact to light touch Incision c/d/i Objective Data Vital Signs Vital Signs: Vital Signs - 24 hr 06/16/24 20:32 06/16/24 20:35 06/17/24 05:21 Temperature 98.6 F 98.4 F Pulse Rate 110 H 110 H 113 H Respiratory Rate 18 18 17 Blood Pressure 107/61 111/63 Pulse Oximetry 96 96 97 Oxygen Delivery Room Air 06/17/24 08:00 06/17/24 14:13 Temperature 97.6 F Pulse Rate 102 H Respiratory Rate 18 Blood Pressure 108/53 L Pulse Oximetry 100 Oxygen Delivery Room Air Intake/Output Intake/Output: Intake & Output 06/14/24 06/15/24 06/16/24 06/17/24 23:59 23:59 23:59 23:59 Intake Total 990 4456 1562 Output Total 1040 1200 Balance -50 3256 1562 Meds/Results Medications: Active Medications Generic Name Dose Route Start Last Admin Trade Name Freq PRN Reason Stop Dose Admin Acetaminophen 1,000 mg 06/15/24 12:56 Acetaminophen 500 Mg Tablet PO BID PRN Pain Hydrocodone Bitart/Acetaminophen 1 tab 06/15/24 12:56 Hydrocodone/Acetaminophen (*Crx) 5-325 Mg Tablet PO Q4H PRN Mild Pain (1-3) Hydrocodone Bitart/Acetaminophen 1 tab 06/15/24 12:56 06/17/24 17:06 Hydrocodone/Acetaminophen (*Crx) 10-325 Mg Tablet PO 1 tab Q4H PRN Administration Moderate Pain (4-6) Al Hydrox/Mg Hydrox/Simethicone 20 ml 06/15/24 12:56 Mag Hydrox/Al Hydrox/Simeth 30 Ml Udc PO Q4H PRN Indigestion/Heartburn Atorvastatin Calcium 20 mg 06/16/24 09:00 06/17/24 08:19 Atorvastatin 20 Mg Tablet PO 20 mg DAILY JACQUI Administration Bisacodyl 10 mg 06/15/24 12:56 Bisacodyl 10 Mg Suppository RECTAL DAILY PRN Constipation Cyclobenzaprine HCl 10 mg 06/15/24 12:56 06/17/24 08:22 Cyclobenzaprine Hcl 10 Mg Tablet PO 10 mg TID PRN Administration Muscle Spasms Docusate Sodium 100 mg 06/15/24 21:00 06/17/24 08:19 Docusate Sodium 100 Mg Capsule PO 100 mg Q12HR JACQUI Administration Duloxetine HCl 30 mg 06/16/24 09:00 06/17/24 08:19 Duloxetine Hcl 30 Mg Capsule. PO 30 mg QAM JACQUI Administration Duloxetine HCl 60 mg 06/15/24 18:00 06/17/24 17:07 Duloxetine Hcl 30 Mg Capsule. PO 60 mg QPM JACQUI Administration Gabapentin 100 mg 06/15/24 13:00 06/17/24 17:07 Gabapentin 100 Mg Capsule PO 100 mg TID JACQUI Administration Hydromorphone HCl 0.5 mg 06/15/24 12:56 06/15/24 17:31 Hydromorphone Hcl Inj (*Crx) 1 Mg/Ml Syr IV PUSH 0.5 mg Q2H PRN Administration Pain Rated 7-10 Cefazolin Sodium 1 gm in 50 mls @ 100 mls/hr 06/15/24 16:00 06/17/24 16:57 Ancef 1 Gm/Ns 50 Ml IVPB 100 mls/hr Q8H JACQUI Administration Potassium Chloride/Dextrose/Sod Cl 1,000 mls @ 100 mls/hr 06/15/24 12:56 12/06 10:25 Kcl 20 Meq/D5/0.45% Sod Chl IV CONT 100 mls/hr .Q10H JACQUI Administration Non-Formulary Medication 15 mg 06/28/24 09:00 Tirzepatide [Mounjaro] SUB-Q 07/28/24 08:59 Mo@0900 [facility] Ondansetron HCl 4 mg 06/15/24 12:56 Ondansetron Inj 4 Mg/2 Ml Vial IV PUSH Q8H PRN Nausea And Vomiting Pantoprazole Sodium 40 mg 06/16/24 09:00 06/17/24 08:19 Pantoprazole 40 Mg Tablet PO 40 mg QAM JACQUI Administration Senna/Docusate Sodium 1 tab 06/15/24 12:56 Senna/Docusate Sodium Tablet PO HS PRN Constipation
[2024-06-17] MEDS: ACETAMINOPHEN 500 MG TABLET 1000 MG PO (18:17)
[2024-06-17 20:52] VITALS: BP 137/56; PULSE 119; RESP 20; TEMP 36.6; O2SAT 96
[2024-06-17 21:15] VITALS: PULSE 119; RESP 20; O2SAT 96
[2024-06-17] MEDS: KCL 20 MEQ/D5/0.45% SOD CHL 1,000 ML 30 ML IV CONT (21:18)
[2024-06-17] MEDS: oxyCODONE HCL (*CRX) 5 MG TAB IR 10 MG PO (21:22)
[2024-06-18] MEDS: ACETAMINOPHEN 500 MG TABLET 1000 MG PO ×4 (00:30→17:05)
[2024-06-18] MEDS: ceFAZolin 1 GM/NS 50 ML 1 GM/50 ML BAG IVPB ×2 (00:30→11:08)
[2024-06-18 05:16] VITALS: BP 138/81; PULSE 77; RESP 20; TEMP 36.6; O2SAT 95
[2024-06-18] MEDS: oxyCODONE HCL (*CRX) 5 MG TAB IR 10 MG PO (06:03)
[2024-06-18 08:28] LABS: Alanine Aminotransferase 10 U/L (6-35); Albumin Level 3.1 g/dL (3.5-5.1); Alkaline Phosphatase 110 U/L (38-126); Anion Gap 1 mmol/L (4-12); Aspartate Amino Transferase 28 U/L (14-36); Basophils Absolute Auto 0.1 K/mm3 (0.0-0.1); Basophils Percent Auto 0.8 % (0.2-1.2); Bilirubin,Total 0.6 mg/dL (0.2-1.3); Blood Urea Nitrogen 7 mg/dL (7-17); Calcium 8.2 mg/dL (8.4-10.2); Carbon Dioxide 30 mmol/L (22-30); Chloride 101 mmol/L (98-107); Eosinophils Absolute Auto 0.2 K/mm3 (0-0.3); Estimated CRCL calculation 85 ml/min; Estimated Glomerular Filt Rate > 60; Glucose 123 mg/dL (65-110); Hematocrit 33.9 % (37.0-47.0); Hemoglobin 10.8 g/dL (12.0-15.0); Immature Granulocyte Absolute 0.16 K/mm3 (0.00-0.031); Immature Granulocyte Percent A 1.6 % (0-0.5); Lymphocytes Absolute Auto 1.67 K/mm3 (0.9-3.2); Lymphocytes Percent Auto 17.2 % (18.3-44.2); Mean Corpuscular HGB Conc 31.9 g/dl (32-36); Mean Corpuscular Hemoglobin 30.3 pg (26-34); Mean Corpuscular Volume 95.2 fl (80-100); Monocytes Absolute Auto 0.8 K/mm3 (0.1-0.6); Monocytes Percent Auto 8.5 % (2.6-8.5); Neutrophils Absolute Auto 6.8 K/mm3 (1.3-6.7); Neutrophils Percent Auto 69.9 % (45.5-73.1); Platelet Count Result 181 k/mm3 (150-375); Potassium 5.4 mmol/L (3.4-5.0); Red Blood Count 3.56 M/mm3 (4.2-5.4); Red Cell Distribution Width 14.2 % (11.5-14.5); Sodium 132 mmol/L (137-145); White Blood Count 9.7 K/mm3 (4.5-10.0)
[2024-06-18] MEDS: DOCUSATE SODIUM 100 MG CAPSULE PO (11:07)
[2024-06-18] MEDS: PANTOPRAZOLE 40 MG TABLET PO (11:07)
[2024-06-18] MEDS: ATORVASTATIN 20 MG TABLET PO (11:07)
[2024-06-18] MEDS: DULoxetine HCL 30 MG CAPSULE.DR PO (11:07)
[2024-06-18] MEDS: GABAPENTIN 100 MG CAPSULE PO ×2 (11:07→17:06)
[2024-06-18] MEDS: CYCLOBENZAPRINE HCL 10 MG TABLET PO (11:12)
[2024-06-18] MEDS: oxyCODONE HCL (*CRX) 5 MG TAB IR PO (11:12)
[2024-06-18 15:50] VITALS: BP 102/54; PULSE 98; RESP 16; TEMP 36.6; O2SAT 94
[2024-06-18] MEDS: DULoxetine HCL 30 MG CAPSULE.DR 60 MG PO (17:05)
--- NOTE | 2024-07-10 13:39 | P.DS_ITS ---
DS: Admitting Diagnosis Discharge Date 06/18/24 Admitting Diagnosis L2-3 and L3-4 spondylosis and stenosis DS: Discharge Diagnosis Discharge Diagnosis (1) Lumbar stenosis with neurogenic claudication: Code(s): M48.062 - Spinal stenosis, lumbar region with neurogenic claudication Status: Acute (2) Status post lumbar spinal fusion: Code(s): Z98.1 - Arthrodesis status Status: Acute DS: Summary Hospital Course Hospital Course: the patient was brought to the operating room on 06/15 24 over the aforementioned operation that is an L2-3 and L3-4 fusion was performed without complication. The patient went to the floor postoperatively. Physical and occupational therapy were involved in her care. Her drains and Mensah catheter remain in place until postoperative day 2. On postoperative day 3 she was eating, ambulating, emptying her bladder and her pain was under control with by mouth pain medicine. Her wounds remained clean dry and intact. She was afebrile with stable vital signs. She was therefore allowed to be discharged to home. Time Spent with Patient Time attestation: Total time spent providing and/or coordinating discharge services: Discharge Plan Discharge Attending physician on discharge: Jesus Hills Consulting providers: Erick Crowder; James Sharma; Nelly Spears Discharging Clinician: Jesus Hills Patient Disposition: Home, Self-Care Activity: may shower Diet: as tolerated Discharge Instructions: INSTRUCTIONS AFTER YOUR LUMBAR LAMINECTOMY/DEC OMPRESSION/FORAMINOTOMY/DISCECTOMY * Incisions may be closed with either: * Steri-strips (let them wear off on their own). * Surgical glue (let it peel off on its own). * Sutures or saqib (call the office for an appointment to have these removed). * Keep the incision dry for the first three days after surgery. Never apply ointments or lotions to the incision. * The incision should be checked daily. Notify the office if there is drainage, redness, or if you have fever with a temperature of over 100 degrees. * After the third postop day, it is okay to shower. Let soap and water run over your incision. No soaking in a tub, hot tub, or pool for at least one month. * You are encouraged to walk as much as comfortable, with assistance as needed. For example, it may be beneficial to walk short distances hourly during the waking hours and gradually increase walking during your recovery period. Fatigue can be common. * Avoid any bending, heavy lifting, twisting movements. * You have an [id number]-pound lift restriction until further advised by your physician (A gallon of milk weighs eight pounds). * Make frequent position changes, avoiding long periods of sitting. Try not to sit more than 30 minutes at a time. * You may engage in sexual activity in two weeks as tolerated. * No housework, especially vacuuming, making beds, or doing laundry until seen in the office. * You may walk stairs carefully. * Minimize car rides for two weeks. Driving can usually be resumed within two weeks; however, you may not drive at that time if still taking pain medications. * Once you are discharged from the hospital, please call the office to set up your postop appointment. * The physician may order pain medication and/or muscle relaxers. As time goes by, you should require less of these. Always take your medication as ordered, and only if needed. If you take more than prescribed, it will not be refilled early. If you feel you require narcotic medication refill, kindly give the office a 72-hour notice. No refills are given over the weekend. * Anti-inflammatory meds (like Ibuprofen, Aleve, Advil, Motrin) may be used if approved by your surgeon. Over the counter Tylenol products may be used but use caution mixing Tylenol with your pain medication. The common pain pills include Acetaminophen as an ingredient, you could cause liver damage if taking too much. Tylenol and Acetaminophen are the same drug. * Resume your usual diet. Constipation is a common problem postop, especially when taking narcotic pain medications. You may use any over the counter laxative, or stool softener, following the bottle directions. * Use of nicotine products should be stopped completely. Smoking can slow the healing process significantly. It can also increase the chance for developing postop pneumonias and other complications. Please avoid use of all nicotine products for the health of your spine. * FOR AN EMERGENCY AFTER HOURS OR ON A WEEKEND, PLEASE CALL THE MEDICAL EXCHANGE AT * Call the office for: * Appointment set up. * Fever greater than 101 degrees. * Increased pain, swelling, redness or drainage from your incision. * Trouble swallowing or breathing. * Pain, swelling or weakness of your legs. * Any other question or concerns you may have. Patient Instructions: Antibiotic Form Stand Alone Forms: General Discharge Information Follow-up/Referrals: Jesus Hills MD [Physician] - Discharge Medications: New hydrocodone-acetaminophen 5-325 mg tablet 1 - 2 tablet PO Q4H PRN (Reason: pain) Qty: 40 0RF Continued duloxetine 30 mg capsule,delayed release(DR/EC) 30 mg PO QAM pantoprazole 40 mg tablet,delayed release (DR/EC) 40 mg PO QAM atorvastatin 20 mg tablet 20 mg PO DAILY cyclobenzaprine 5 mg tablet 5 mg PO TID PRN (Reason: PAIN) gabapentin 100 mg capsule 100 mg PO TID Mounjaro 15 mg/0.5 mL pen injector 15 mg subcut WEEKLY Rx Instructions: MONDAYS acetaminophen 500 mg Capsule 1,000 mg PO BID PRN (Reason: Pain) duloxetine 30 mg capsule,delayed release(DR/EC) 60 mg PO QPM No Action hydrocodone-acetaminophen 5-325 mg tablet 1 - 2 tablet PO Q4H PRN (Reason: pain) Qty: 40 0RF Date of admission: 06/16/24 18:36 Primary Care Provider: Carter Wolf Admitting Provider: Jesus Hills Attending physician on admission: Jesus Hills Condition: Improved
== END 2024-06-18 17:40 | disposition home or self-care (01) ==
LOC: ANHSURGERY 18:44 → ANH2MED 18:44
PROVIDERS: Admitting Provider Neurological Surgery; PCP Internal Medicine; Visit Provider Neurological Surgery
PROC: (CPT 22612; principal; 2024-06-15 07:30)
DX: M48.062 Spinal stenosis, lumbar region with neurogenic claudication (principal); G97.41 Accidental puncture or laceration of dura during a procedure; Z98.1 Arthrodesis status; E11.40 Type 2 diabetes mellitus with diabetic neuropathy, unspecified; E78.5 Hyperlipidemia, unspecified; E66.01 Morbid (severe) obesity due to excess calories; Z68.42 Body mass index [BMI] 45.0-49.9, adult; Z87.891 Personal history of nicotine dependence; Z79.85 Long-term (current) use of injectable non-insulin antidiabetic drugs; Z79.899 Other long term (current) drug therapy
CPT/HCPCS: 22633; 22614; 22842; 20936; 63052; 63053; 22853; 36415; 80053; 82948; 85025; 97116; 97161; 97165; 97530; 97535; 99199; A9270; C1713; G0378; J0330; J0690; J1100; J1171; J2003; J2004; J2405; J2704; J3010; J3370; J3480; J7120

== ENCOUNTER 2024-10-25 12:37 | Outpatient (CLI) | payer OTHER, SELFPAY ==
--- NOTE | ~2024-10-25 | MR_ITS ---
EXAMINATION: MR lumbar spine wo con DATE: 10/25/2024 13:24 INDICATION: Spinal stenosis, lumbar region. TECHNIQUE: Magnetic resonance imaging (MRI) of the lumbar spine was performed without intravenous con trast. COMPARISON: Lumbar spine MRI 02/20/24 FINDINGS: There is 9 degrees levocurvature of thoracolumbar spine. There is mild chronic anterior wed ging of T11 vertebral body. There is moderately decreased disc height at T11-T12, mildly decreased di sc height at T12-L1, moderately decreased disc height at L1-L2 and L2-L3, mildly decreased disc heigh t at L3-L4, and severely decreased disc at L4-L5. There are changes of posterior fusion procedure fro m L2 to L4 with pedicle screws. There are changes of posterior fusion procedure at L4-L5 with fixatio n of the posterior elements. The distal spinal cord signal intensity is normal. The conus medullaris is at T12-L1. There is a subcutaneous fluid collection posterior to L1 and L2 measuring 2.2 x 0.9 x 5 .9 cm with fluid/fluid level, likely a chronic hematoma. There are laminectomies at L2 and L3 with 3. 0 x 1.4 x 4.3 cm fluid collection in the postlaminectomy space, likely a seroma. The following disc l evels are specifically discussed: L1-L2: The disc is bulging with superimposed right central extrusion. There is mild bilateral facet j oint osteoarthritis. There is mild bilateral neural foraminal stenosis. There is mild central canal s tenosis. L2-L3: The disc is bulging with superimposed left central extrusion. There is no facet joint hypertro phy. There is mild bilateral neural foraminal stenosis with posterior decompression. There is mild ce ntral canal stenosis with posterior decompression. L3-L4: The disc is bulging. There is moderate right and mild left facet joint osteoarthritis. There i s mild bilateral neural foraminal hypertrophy. There is mild central canal stenosis with posterior de compression. L4-L5: The disc is bulging. There is no facet joint hypertrophy. There is mild bilateral neural hilary inal stenosis. There is no central canal stenosis. There is posterior decompression. L5-S1: There is a left foraminal protrusion. There is severe bilateral facet joint osteoarthritis. Th ere is mild bilateral neural foraminal stenosis. There is no central canal stenosis. IMPRESSION: 1. Severe lumbar spondylosis. 2. Posterior fusion procedures from L2 to L5. Reviewed, dictated and finalized at location A. OLE OPERATOR
== END 2024-10-25 12:38 | disposition home or self-care (01) ==
PROVIDERS: PCP Internal Medicine; Visit Provider Neurological Surgery
DX: M48.062 Spinal stenosis, lumbar region with neurogenic claudication (principal)
CPT/HCPCS: 72148

== ENCOUNTER 2025-03-30 14:16 | Outpatient (CLI) | payer OTHER, SELFPAY ==
--- NOTE | ~2025-03-30 | CT_ITS ---
CT Scan of the Chest without Contrast: Clinical Indication: Lung cancer screening, nicotine dependence Technique: Contiguous sections were acquired throughout the chest without intravenous contrast. Dose reduction technique was used on this scan by utilizing automated exposure control and iterative recon struction technique. The dose-length product (DLP) was 96.78 mGy-cm. COMPARISON: 10/03/2022 Findings: There is no evidence of any significant mediastinal, hilar or axillary lymphadenopathy. Coronary milagros ry calcifications. There is no evidence of pleural or pericardial effusion. The lungs are clear. No pulmonary nodules or infiltrates are noted. Images through the upper abdomen reveal markedly atrophic red cliff right kidney. Impression: Lung RADS 1: Negative. 12 month follow-up screening CT advised. Reviewed, dictated and finalized at location . Impression: Lung RADS 1: Negative. 12 month follow-up screening CT advised.
--- NOTE | ~2025-03-30 | MM_ITS ---
EXAMINATION: MM screening shobha BI w nan HISTORY: Screening TECHNIQUE: Craniocaudal and mediolateral oblique 3-D tomosynthesis images were obtained and synthetic 2-D images were generated. CAD analysis was submitted and interpreted. COMPARISON: No prior mammogram is available for comparison at this institution. BREAST PARENCHYMAL COMPOSITION: Not Dense: The breasts are almost entirely fatty. FINDINGS: There is no evidence of suspicious mass, calcification, or architectural distortion to sugg est malignancy in either breast. There has been no suspicious interval change. IMPRESSION: 1. No mammographic evidence of malignancy. 2. Recommend routine screening mammography in one year. BI-RADS Category 1: Negative Reviewed, dictated and finalized at location B.
--- NOTE | ~2025-03-30 | DEXA_ITS ---
Bone Density Report Name: WARNER GIPSON Age: 60 Sex: Female Ethnicity: White Date of : 1965 Indication: postmenopausal; screening for osteoporosis; Referring Provider: THOM CHARLES Study: Bone densitometry was performed. Exam Date: March 30, 2025 Accession number: [id number] Bone Density: Region BMD T-score Z-score Classification Femoral Neck (Left) 0.839 -0.1 1.2 Normal Total Hip (Left) 0.895 -0.4 0.6 Normal Femoral Neck (Right) 0.677 -1.6 -0.2 Osteopenia Total Hip (Right) 0.938 0.0 1.0 Normal Femoral Neck Mean 0.758 -0.8 0.5 Normal Total Hip Mean 0.917 -0.2 0.8 Normal World Health Organization criteria for BMD impression classify patients as: Normal (T-score at or above -1.0), Osteopenia (T-score between -1.0 and -2.5), or Osteoporosis (T-score at or below -2.5). 10-year Fracture Risk(1): Major Osteoporotic Fracture 7.6% Hip Fracture 0.6% Reported Risk Factors: [place] (), Neck BMD=0.677, BMI=37.3 (1) FRAX(R) Version 3.08. Fracture probability calculated for an untreated patient. Fracture probability may be lower if the patient has received treatment. Clinical Information Provided by Patient: Patient maximum height was 60. Menopause Age: 49 No regular weight bearing exercise Does not regularly consume dairy products Drinks caffeinated beverages Onset of menses at age 11 Number of children 2 Impression: The patient has low bone mass, based on the Right Femoral Neck T-score. Discussion: BONE DENSITY IS LOW AT ONE OR MORE SKELETAL SITES. This patient's lowest T-score is low at one or more skeletal sites. It meets the World Health Organization's (WHO) criteria for ?low bone mass? (T-score between -1.0 and -2.5). The patient's 10-year risk of fracture as calculated by FRAX is less than the threshold where pharmacological therapy is recommended by the National Osteoporosis Foundation (NOF). However, all treatment decisions require clinical judgment and consideration of individual patient factors, including patient preferences, comorbidities, previous drug use, risk factors not captured in the FRAX model (e.g., frailty, falls, vitamin D deficiency, increased bone turnover, interval significant decline in bone density) and possible under or overestimation of fracture risk by FRAX. The patient should follow a healthful lifestyle (good nutrition with adequate calcium and vitamin D, and appropriate weight-bearing exercise). Follow-Up: Consider repeating this study in 2 to 3 years to reassess this patient's status, or sooner if there is some new clinical indication. Reported by: SAUD on 03/30/2025 2:56:00 PM. Reviewed, dictated and finalized at location A.
--- OUTSIDE RECORDS SUMMARY | 2025-03-30 14:23 | XMS_ITS | Clinical Summary ---
Author Organization [facility] Address [facility] [place] [address] Care Team Providers [employer] Name Role Phone Carter Wolf MD Primary Care Provider [phone] Allergies Active Allergy Reactions Criticality Noted Date Comments Oxytetracycline Unknown 04/24/2012 Penicillins Unknown 04/24/2012 Medications Elastic Bandages & Supports (FINGER SPLINT) MiscIndications :Injury of right index finger, initial encounter 1 Device by Does not apply route daily. Long, two finger immobilizer. Full-length hand splint for first two fingers on right hand. 1 each 0 Active FINGER SPLINT MISC, DME,Indications :Injury of right index finger 1 Device by Does not apply route daily. Full length hand splint for first 2 fingers on right hand-long 2 finger immobilizer 1 Device 0 Active atorvastatin 20 MG tablet 20 mg. 9 Active cyclobenzaprine 5 MG tablet 9 Active DULoxetine 60 MG capsule 9 Active traMADol 50 MG tablet 0 Active multi vitamin/mineral s tablet Take 1 tablet by mouth daily. Active Elastic Bandages & Supports (CARPAL TUNNEL WRIST STABILIZER) MiscIndications :Left hand pain,Left wrist pain Wear on left wrist at bedtime and during the day if improves symptoms 1 each 0 Active methylPREDNISol one, HOLLAND, 4 MG tabletIndicatio ns:Left hand pain,Left wrist pain 6 TABLETS ON DAY ONE, 5 TABLETS DAY TWO, 4 TABLETS DAY THREE, 3 TABLETS DAY FOUR, 2 TABLETS DAY FIVE, AND 1 TABLET DAY SIX 1 each 0 Active diclofenac EC 75 MG tabletIndicatio ns:Left hand pain,Left wrist pain Take 1 tablet (75 mg total) by mouth 2 (two) times daily. 60 tablet 0 Active Active Problems No known active problems Immunizations Immunization Administration Dates Next Due Afluria 36 MONTHS+ (Prefille d Syringe IIV4) 07/10/2019 Influenza (Generic) 06/11/2018, 7,05/30/2016,2014,06/06/2012 Social History Tobacco Use Types Packs/Day Years Used Date Smoking Tobacco: Every Day Cigarettes 0.5 25 Smokeless Tobacco: Never Alcohol Use Standard Drinks/Week Comments No 0 (1 standard drink = 0.6 oz pur e alcohol) AUDIT-C Answer Date Recorded Frequency of Alcohol Consumption Never 05/05/2019 Average Number of Drinks Not on file 019 Frequency of Binge Drinking Not on file 04/16 PHQ-2 Answer Date Recorded PHQ-2 Score - If the patient scores above 3, please move on to questions 3-9 0 06/21/2020 Comments No Sex and Gender Information Value Date Recorded Sex Assigned at Not on file Legal Sex Female 4:28 PM CDT Gender Identity Not on file Sexual Orientation Not on file Last Filed Vital Signs Vital Sign Reading Time Taken Comments Blood Pressure 118/80 06/21/2020 12:37 PM CDT Pulse 99 06/21/2020 12:37 PM CDT Temperature 36.2 C (97.2 F) 06/21/2020 12:37 PM CDT Respiratory Rate 18 06/14/2020 11:15 AM CDT Oxygen Saturation 97% 06/21/2020 12:37 PM CDT Inhaled Oxygen Concentration - - Weight 104.3 kg (230 lb) 06/21/2020 12:37 PM CDT Height 149.9 cm (4' 11) 06/21/2020 12:37 PM CDT Body Mass Index 46.45 06/21/2020 12:37 PM CDT Plan of Treatment Health Maintenance Due Date Last Done Comments Cervical Cancer Screening Pa p Smear (Age 30 to 64) Every 3 Years 1965 Colorectal Cancer Screening Colonoscopy (10 Years) 1965 Annual Physical 01/21/1967 Hepatitis C 01/21/1982 DTaP, Tdap and Td Vaccines ( 1 - Tdap) 01/21/1983 Pneumococcal Vaccine: 50+ Years (1 of 2 - PCV) 01/21/1983 Cervical Cancer Screening Pa p with HPV Testing (Age 30 to 64) Every 5 Years 01/21/1994 Cervical Cancer Screening wi th HPV 01/21/1994 Mammogram Screening 2004 Zoster Vaccines (2 of 2) 09/18/2020 07/24/2020 COVID-19 Vaccine (4 - 2023-2 5 season) 2024 09/12/2021, 12/30/2020, 12/09/2020 RSV Immunization or 60+ Years (1 - 1-dose 75+ series) 01/21/2039 Meningococcal B Vaccine Aged Out No l onger eligible based on patient's age to complete this topic Meningococcal Vaccine Aged Out No taj mary eligible based on patient's age to complete this topic RSV Immunizations Under 20 Months Aged Out No longer eligible b ased on patient's age to complete this topic Insurance [employer] [facility] [employer] Relationship Specialty Start Date End Date Carter Wolf MD [address] [place] [address] PCP - General INTERNAL MEDICINE 02/17/20
== END 2025-03-30 14:17 | disposition home or self-care (01) ==
PROVIDERS: PCP Internal Medicine; Visit Provider Internal Medicine
DX: Z12.31 Encounter for screening mammogram for malignant neoplasm of breast (principal); Z78.0 Asymptomatic menopausal state; Z12.2 Encounter for screening for malignant neoplasm of respiratory organs; Z87.891 Personal history of nicotine dependence; M85.88 Other specified disorders of bone density and structure, other site
CPT/HCPCS: 71271; 77063; 77067; 77080